=== PATIENT | male | born 1965 | race Caucasian/White ===

== ENCOUNTER 2017-08-09 11:46 | Outpatient (CLI) | payer OTHER ==
--- NOTE | 2017-08-09 13:48 | MRI ---
MRI OF THE CERVICAL SPINE WITHOUT CONTRAST: HISTORY: Neck pain. COMPARISON: None. TECHNIQUE: Multiplanar, multisequence MR images were obtained of the cervical spine without contrast. FINDINGS: Generalized disk desiccation is seen. The vertebral bodies and intervertebral disks demonstrate nor mal height and alignment without fracture or subluxation. There is a well circumscribed area of hig h T1 and T2 signal within the C6 vertebral body, which likely represents a hemangioma. The visualiz ed cord demonstrates normal signal throughout. The craniocervical junction is unremarkable. The pr evertebral and paraspinal soft tissues are unremarkable. C2-C3: Unremarkable. C3-C4: A small disk osteophyte complex is seen. No posterior facet arthrosis. No central canal st enosis. Mild bilateral neural foraminal stenosis. C4-C5; A small disk osteophyte complex is seen. No posterior facet arthrosis. No neural foraminal or central canal stenosis. C5-C6: A moderate disk osteophyte complex is seen. No posterior facet arthrosis. Moderate central canal stenosis. Moderate right and mild left neural foraminal stenosis. C6-C7: A small disk osteophyte complex is seen. No posterior facet arthrosis. Moderate central ca nal stenosis. Moderate bilateral neural foraminal stenosis. C7-T1: Unremarkable. IMPRESSION: Degenerative changes in the cervical spine, as above. POS: [facility]
--- NOTE | 2017-08-09 13:55 | MRI ---
MRI OF THE LUMBAR SPINE WITHOUT CONTRAST: Comparison: None. History: Back pain, bilateral leg weakness. Technique: Multiplanar, multisequence MRI images were obtained in the lumbar spine without contrast. FINDINGS: Generalized disc desiccation is seen. The vertebral bodies and intervertebral discs demonstrate norm al height and alignment without fracture or subluxation. The conus medullaris terminates normally at T12. The prevertebral and paraspinal soft tissues are unremarkable. T12-L1: Unremarkable. L1-2: A minimal generalized concentric disc bulge is seen. Mild bilateral posterior facet arthrosis. No central canal stenosis. No neural foraminal stenosis. L2-3: A small generalized concentric disc bulge is seen. Mild bilateral posterior facet arthrosis. M ild central canal stenosis. Mild bilateral neural foraminal stenosis. L3-4: A small generalized concentric disc bulge is seen. Mild bilateral posterior facet arthrosis. M ild central canal stenosis. Moderate right and mild left neural foraminal stenosis. L4-5: A moderate disc osteophyte complex is seen. No posterior facet arthrosis. No central canal tanja nosis. Moderate bilateral neural foraminal stenosis. L5-S1: Unremarkable. IMPRESSION: Degenerative changes of the lumbar spine as above. POS: [facility]
== END 2017-08-09 11:47 | disposition home or self-care (01) ==
LOC: MRI 11:46
PROVIDERS: ATTEND Psychiatry & Neurology Neurology
DX: M54.5 Low back pain (principal); M54.2 Cervicalgia; M47.816 Spondylosis without myelopathy or radiculopathy, lumbar region; M47.812 Spondylosis without myelopathy or radiculopathy, cervical region
CPT/HCPCS: 72141; 72148

== ENCOUNTER 2021-12-20 15:45 | Outpatient (CLI) | payer OTHER | END 2021-12-20 15:46 | disposition home or self-care (01) | LOC: CTENTCT 15:45 | PROVIDERS: ATTEND Specialist | DX: J32.9 Chronic sinusitis, unspecified (principal) | CPT/HCPCS: 70486 ==

== ENCOUNTER 2022-01-06 09:12 | Day surgery (SDC) | payer OTHER ==
[2022-01-03 10:31] VITALS: BMI 26.7
[2022-01-06] MEDS ORDERED: AFRIN NASAL MIST 15 ML BOT ONE ×2 (09:50→09:54)
[2022-01-06] MEDS ORDERED: Bacitracin Zinc Ointment 30 gm TUBE ONE (09:50)
[2022-01-06] MEDS ORDERED: Lidocaine 1% w/Epinephrine 1:100K 30 ML VIAL ONE (09:50)
[2022-01-06] MEDS ORDERED: Ondansetron PF 4 MG/2 ML Vial ONE ×2 (09:54→10:33)
[2022-01-06] MEDS ORDERED: Midazolam HCl 2 mg/2 ml Vial ONE (09:54)
[2022-01-06] MEDS ORDERED: Fentanyl 100 MCG/2 ML VIAL ONE ×2 (10:01→10:54)
[2022-01-06] MEDS ORDERED: Rocuronium Bromide 10 MG/ML (10ML VIAL) ONE (10:33)
[2022-01-06] MEDS ORDERED: Lidocaine 1% PF 5 ML VIAL ONE (10:33)
[2022-01-06] MEDS ORDERED: PROPOFOL 200 MG/20 ML VIAL ONE (10:33)
[2022-01-06] MEDS ORDERED: Dexamethasone 20 MG/5 ML VIAL ONE (10:33)
[2022-01-06] MEDS ORDERED: EPINEPHrine 1 MG/ML AMP ONE ×2 (10:47→11:57)
[2022-01-06] MEDS ORDERED: PROPOFOL 20 ML ONE (11:47)
[2022-01-06] MEDS ORDERED: Fentanyl 250 MCG/5 ML VIAL ONE (11:56)
[2022-01-06] MEDS ORDERED: HYDROcodone/Acetaminophen 5/325 mg Tablet ONE (13:11)
[2022-01-07 13:51] LABS: Allergen,Alternaria altern.IgE Less than 0.10 kU/L (Less than 0.10); Allergen,Ash white IgE Less than 0.10 kU/L (Less than 0.10); Allergen,Aspergillus fumig.IgE Less than 0.10 kU/L (Less than 0.10); Allergen,Beef IgE Less than 0.10 kU/L (Less than 0.10); Allergen,Bermuda grass IgE Less than 0.10 kU/L (Less than 0.10); Allergen,Cat dander IgE Less than 0.10 kU/L (Less than 0.10); Allergen,Cedar mountain IgE Less than 0.10 kU/L (Less than 0.10); Allergen,Chocolate/Cacao IgE Less than 0.10 kU/L (Less than 0.10); Allergen,Cladosporium herb.IgE Less than 0.10 kU/L (Less than 0.10); Allergen,Corn IgE Less than 0.10 kU/L (Less than 0.10); Allergen,Cottonwood Tree IgE Less than 0.10 kU/L (Less than 0.10); Allergen,Crab IgE Less than 0.10 kU/L (Less than 0.10); Allergen,Curvularia lunata IgE Less than 0.10 kU/L (Less than 0.10); Allergen,D. pteronyssinus IgE Less than 0.10 kU/L (Less than 0.10); Allergen,Dog dander IgE Less than 0.10 kU/L (Less than 0.10); Allergen,Egg white IgE Less than 0.10 kU/L (Less than 0.10); Allergen,Egg yolk IgE Less than 0.10 kU/L (Less than 0.10); Allergen,Elm AmericanWhite IgE Less than 0.10 kU/L (Less than 0.10); Allergen,Johnson grass IgE Less than 0.10 kU/L (Less than 0.10); Allergen,Lamb's qrters Gooseft Less than 0.10 kU/L (Less than 0.10); Allergen,Mesquite IgE Less than 0.10 kU/L (Less than 0.10); Allergen,Milk IgE Less than 0.10 kU/L (Less than 0.10); Allergen,Oat IgE Less than 0.10 kU/L (Less than 0.10); Allergen,Peanut IgE Less than 0.10 kU/L (Less than 0.10); Allergen,Pecan nut IgE Less than 0.10 kU/L (Less than 0.10); Allergen,Pecan/Hickory IgE Less than 0.10 kU/L (Less than 0.10); Allergen,Plantain English IgE Less than 0.10 kU/L (Less than 0.10); Allergen,Pork IgE Less than 0.10 kU/L (Less than 0.10); Allergen,Ragweed giant IgE Less than 0.10 kU/L (Less than 0.10); Allergen,Rice IgE Less than 0.10 kU/L (Less than 0.10); Allergen,Saltwort RussianThist Less than 0.10 kU/L (Less than 0.10); Allergen,Shrimp IgE Less than 0.10 kU/L (Less than 0.10); Allergen,Soybean IgE Less than 0.10 kU/L (Less than 0.10); Allergen,Sycamore Maple Lf IgE Less than 0.10 kU/L (Less than 0.10); Allergen,Timothy grass IgE Less than 0.10 kU/L (Less than 0.10); Allergen,Tomato IgE Less than 0.10 kU/L (Less than 0.10); Allergen,Wheat IgE Less than 0.10 kU/L (Less than 0.10); Allergen,Wormwood IgE Less than 0.10 kU/L (Less than 0.10); IgE Total Antibody 7.7 kU/L (0-192.0)
== END 2022-01-06 13:52 | disposition home or self-care (01) ==
LOC: SDC 09:12
PROVIDERS: ATTEND Specialist
PROC: 099X8ZZ Drainage of Left Sphenoid Sinus, Via Natural or Artificial Opening Endoscopic (ICD-10-PCS; principal; 2022-01-06)
PROC: 09TL8ZZ Resection of Nasal Turbinate, Via Natural or Artificial Opening Endoscopic (ICD-10-PCS; principal; 2022-01-06)
PROC: 09BR8ZZ Excision of Left Maxillary Sinus, Via Natural or Artificial Opening Endoscopic (ICD-10-PCS; principal; 2022-01-06)
PROC: 099T8ZZ Drainage of Left Frontal Sinus, Via Natural or Artificial Opening Endoscopic (ICD-10-PCS; principal; 2022-01-06)
PROC: 099W8ZZ Drainage of Right Sphenoid Sinus, Via Natural or Artificial Opening Endoscopic (ICD-10-PCS; principal; 2022-01-06)
PROC: 099S8ZZ Drainage of Right Frontal Sinus, Via Natural or Artificial Opening Endoscopic (ICD-10-PCS; principal; 2022-01-06)
PROC: 09SM0ZZ Reposition Nasal Septum, Open Approach (ICD-10-PCS; principal; 2022-01-06)
PROC: 09TV8ZZ Resection of Left Ethmoid Sinus, Via Natural or Artificial Opening Endoscopic (ICD-10-PCS; principal; 2022-01-06)
PROC: 09TU8ZZ Resection of Right Ethmoid Sinus, Via Natural or Artificial Opening Endoscopic (ICD-10-PCS; principal; 2022-01-06)
PROC: 09BQ8ZZ Excision of Right Maxillary Sinus, Via Natural or Artificial Opening Endoscopic (ICD-10-PCS; principal; 2022-01-06)
DX: J32.4 Chronic pansinusitis (principal); J31.0 Chronic rhinitis; J34.2 Deviated nasal septum; J34.3 Hypertrophy of nasal turbinates; E78.5 Hyperlipidemia, unspecified; N40.0 Benign prostatic hyperplasia without lower urinary tract symptoms; J43.9 Emphysema, unspecified; K21.9 Gastro-esophageal reflux disease without esophagitis; F17.210 Nicotine dependence, cigarettes, uncomplicated; F14.10 Cocaine abuse, uncomplicated; Z79.899 Other long term (current) drug therapy
CPT/HCPCS: 82785; 93005; 93010; J0171; J1100; J2250; J2405; J2704; J3010